=== PATIENT | female | born 1945 | race African-American/Black ===

== ENCOUNTER 2020-10-07 16:05 | Emergency (ER) | payer MEDICARE, OTHER ==
[~2020-10-07] VITALS: Ht 172.7 cm; Wt 72.0 kg
[~2020-10-07 16:05] MED LIST: ATOR20TA65 PO; BENA40TA9 PO; HYDR25TA PO; LEVO500T2 PO; METR250T PO
[2020-10-07] MEDS ORDERED: KETOROLAC 30MG/ML VIAL IV STA (16:21)
[2020-10-07] MEDS ORDERED: ONDANSETRON HCL 4MG/2ML INJ IV STA (16:21)
[2020-10-07] MEDS ORDERED: SODIUM CHLORIDE 0.9% 1,000 ML IV ONE (16:30)
[2020-10-07 17:04] LABS: BASOPHILS % 0.4 % (0.0-2.0); HEMATOCRIT. 45.7 % (36.0-48.0); HEMOGLOBIN. 15.1 g/dL (12.0-16.0); MEAN CORPUSCULAR HEMOGLOBIN 31.6 pg (28.0-32.0); MEAN CORPUSCULAR VOLUME 95.7 fL (81.0-99.0); MEAN PLATELET VOLUME 9.1 fl (7.4-10.4); MONOCYTES % 6.4 % (2.0-8.0); NEUTROPHILS % 80.2 % (40.0-76.0); PLATELET 289 x1000/uL (130-400); RED BLOOD CELL COUNT 4.78 mill/uL (4.2-5.4); RED CELL DISTRIBUTION WIDTH 16.4 % (11.6-14.6)
[2020-10-07 17:13] LABS: CHLORIDE 104 mEq/L (98-107)
[2020-10-07] MEDS ORDERED: PANTOPRAZOLE SODIUM 40 MG/VIAL IV ONE (17:15)
[2020-10-07 17:36] LABS: CLARITY URINE CLEAR (CLEAR); COLOR URINE YELLOW (YELLOW); KETONES URINE 1+ (NEGATIVE); LEUKOCYTE ESTERASE URINE NEGATIVE (NEGATIVE); NITRITE URINE NEGATIVE (NEGATIVE); OCCULT BLOOD URINE 1+ (NEGATIVE); PROTEIN URINE 2+ (NEGATIVE); SPECIFIC GRAVITY URINE 1.024 (1.005-1.030)
[2020-10-07] MEDS ORDERED: HYDRALAZINE 20MG/ML VIAL IV ONE (18:30)
[2020-10-07] MEDS ORDERED: ONDA4TAB5 MT (19:13)
[2020-10-07] MEDS ORDERED: PROT40 PO (19:13)
[2020-10-07 20:00] VITALS: BP 160/80
== END 2020-10-07 20:18 | disposition home or self-care (01) ==
LOC: ER 16:05
DX: N20.0 Calculus of kidney (principal); E78.00 Pure hypercholesterolemia, unspecified; I10 Essential (primary) hypertension; F17.200 Nicotine dependence, unspecified, uncomplicated; F12.10 Cannabis abuse, uncomplicated; Z98.890 Other specified postprocedural states; Z79.899 Other long term (current) drug therapy; Z88.0 Allergy status to penicillin
CPT/HCPCS: 36415; 74176; 80053; 81003; 83690; 84484; 85025; 93005; 96361; 96374; 96375; 99285; C9113; J0360; J1885; J2405; J7030

== ENCOUNTER 2021-09-26 07:02 | Emergency (ER) | payer BC, OTHER ==
[~2021-09-26] VITALS: Ht 165.1 cm; Wt 86.0 kg
[~2021-09-26 07:02] MED LIST changes: +ONDA4TAB5 MT; +PROT40 PO
[2021-09-26 08:13] LABS: CHLORIDE 106 mEq/L (98-107)
[2021-09-26 08:14] LABS: BASOPHILS % 0.2 % (0.0-2.0); HEMOGLOBIN. 15.7 g/dL (12.0-16.0); LYMPHOCYTES % 9.3 % (20.0-50.0); MEAN CORPUSCULAR VOLUME 96.8 fL (81.0-99.0); MONOCYTES % 3.6 % (2.0-8.0); NEUTROPHILS % 86.9 % (40.0-76.0); PLATELET 292 x1000/uL (130-400); RED BLOOD CELL COUNT 4.75 mill/uL (4.2-5.4); RED CELL DISTRIBUTION WIDTH 16.2 % (11.6-14.6)
[2021-09-26 08:29] LABS: CLARITY URINE CLEAR (CLEAR); COLOR URINE YELLOW (YELLOW); KETONES URINE 1+ (NEGATIVE); LEUKOCYTE ESTERASE URINE NEGATIVE (NEGATIVE); NITRITE URINE POSITIVE (NEGATIVE); OCCULT BLOOD URINE TRACE (NEGATIVE); PH URINE 7.5 (4.5-8.0); PROTEIN URINE 2+ (NEGATIVE); SPECIFIC GRAVITY URINE 1.019 (1.005-1.030)
[2021-09-26] MEDS ORDERED: LEVOFLOXACIN 250MG TABLET PO ONE (08:45)
[2021-09-26] MEDS ORDERED: LEVO250T58 MT (09:57)
[2021-09-26] MEDS ORDERED: TOPUD PO (09:58)
[2021-09-26] MEDS ORDERED: METO-293 PO (09:58)
[2021-09-26 10:12] VITALS: BP 177/88
== END 2021-09-26 10:16 | disposition home or self-care (01) ==
LOC: ER 07:02
DX: R10.9 Unspecified abdominal pain (principal); N39.0 Urinary tract infection, site not specified; E78.00 Pure hypercholesterolemia, unspecified; I10 Essential (primary) hypertension; Z88.0 Allergy status to penicillin; Z88.3 Allergy status to other anti-infective agents; Z98.890 Other specified postprocedural states
CPT/HCPCS: 36415; 74176; 80053; 81003; 85025; 99284